=== PATIENT | male | born 1980 | race Caucasian/White ===

== ENCOUNTER 2019-12-24 13:00 | Emergency (ER) | payer OTHER, SELFPAY ==
[2019-12-24 13:01] VITALS: BP 154/100; PULSE 104; RESP 18; TEMP 36.7; O2SAT 100; BMI 18.3
--- NOTE | 2019-12-24 13:40 | HMH.EDUTC ---
[facility] [place] Disposition Clinical Impression: Cellulitis of right foot Bug bite with infection Qualifiers: Encounter type: initial encounter Qualified Code(s): W57.XXXA - Bitten or stung by nonvenomous insect and other nonvenomous arthropods, initial encounter Disposition: Home, Self-Care Condition on Discharge: Good Instructions: Cellulitis Additional Instructions: Keep the affected area clean and dry. Follow up with your regular doctor. Take the antibiotics as directed and apply the topical antibiotics as directed. Apply warm wet compresses to the affected area three or four times per day. GO TO THE ER FOR ANY WORSENING SYMPTOMS Prescriptions: Sulfamethoxazole/Trimethoprim [Bactrim DS tablet] 1 each PO BID 10 Days #20 tab Transmission Status: Received by [id number] Mupirocin [Bactroban 2% Ointment 22gm tube] 1 applicatio TP TID 7 Days #1 tube Transmission Status: Received by [id number] cephALEXin [Keflex 500mg Cap] 500 mg PO Q6H 10 Days #40 cap Transmission Status: Received by [id number] Referrals: Provider,Referral, [Primary Care Provider] - Forms: Work/School Release Time of Disposition: 13:46 Medical Decision Making - Medical Records Medical records reviewed: No: I reviewed the patient's medical records. - Merrill Inquiry Pt receiving controlled substance: No Vital Signs: 12/24/19 13:01 12/24/19 14:02 Temperature 98.1 F 98.1 F Temperature Source Oral Oral Pulse Rate 90 Pulse Rate [Radial] 104 H Respiratory Rate 18 18 Blood Pressure 154/90 H Blood Pressure [Right Arm] 154/100 H Blood Pressure Mean [Right Arm] 118 Blood Pressure Source Automatic Cuff Blood Pressure Source [Right Arm] Automatic Cuff Blood Pressure Position Sitting Blood Pressure Position [Right Arm] Sitting 02 Sat by Pulse Oximetry 100 Oxygen Delivery Method Room Air Room Air Orders (Tests/Meds): ED MEDICATIONS Discontinued Medications Generic Name Dose Route Start Last Admin Trade Name Freq PRN Reason Stop Dose Admin Ceftriaxone Sodium 1 gm 12/24/19 13:40 12/24/19 13:47 Rocephin 1gm Vial IM 12/24/19 13:41 1 gm ONCE ONE Administration Protocol Lidocaine HCl 0 ml 12/24/19 13:40 12/24/19 13:47 Lidocaine 1% 10ml Mdv IM 12/24/19 13:41 2.1 ml ONCE ONE Administration ORDERS Category Date Time Status Wound Culture and Gram Stain Stat Micro 12/24/19 13:37 Results [facility] [place] HPI - General Stated complaint: right leg blisters Time Seen by Provider: 12/24/19 13:10 Mode of Arrival: Ambulatory Source of Information: Patient Limitations: No Limitations Description of Symptoms (Recalled from Triage Doc. by RN): blisters to ankle HEENT Symptoms (Recalled from RN notes): No Resp Symptoms (Recalled from RN notes): No Skin Symptoms (Recalled from RN notes): Yes MS Symptoms (Recalled from RN notes): No Functional Status (Recalled from RN notes): wnl - History of Present Illness Provider Complaint: He c/o right ankle and foot pain and swelling from multiple bug bites and infected areas. He is not diabetic. He denies any fever or chills. But, he states that he has felt bad since this morning. - Related Data Previous Rx's Medication Instructions Recorded Mupirocin [Bactroban 2% Ointment 1 applicatio TP TID 7 Days #1 tube 12/24/19 22gm tube] Sulfamethoxazole/Trimethoprim 1 each PO BID 10 Days #20 tab 12/24/19 [Bactrim DS tablet] cephALEXin [Keflex 500mg Cap] 500 mg PO Q6H 10 Days #40 cap 12/24/19 Allergies Allergy/AdvReac Type Severity Reaction Status Date / Time No Known Allergies Allergy Verified 12/24/19 13:29 - Worker's Comp Is this a Worker's Comp case?: No [facility] History - Hepatitis A Screen Drug use history?: No High risk sexual behaviors?: No History of sexually transmitted infection?: No Currently employed?: No Childcare worker?: No Do you have indoor plumbing?: Yes Do you have electricity?:
[2019-12-24 14:02] VITALS: BP 154/90; PULSE 90; RESP 18; TEMP 36.7; O2SAT 100
== END 2019-12-24 14:04 | disposition home or self-care (01) ==
PROVIDERS: Emergency Provider Nurse Practitioner Family
DX: S90.861A Insect bite (nonvenomous), right foot, initial encounter (principal); L03.115 Cellulitis of right lower limb; F17.210 Nicotine dependence, cigarettes, uncomplicated
CPT/HCPCS: 87070; 87077; 87186; 87205; 96372; 99202

== ENCOUNTER 2020-06-12 15:54 | Emergency (ER) | payer OTHER, SELFPAY ==
[2020-06-12 16:04] VITALS: BP 180/91; PULSE 117; RESP 18; TEMP 36.7; O2SAT 99; BMI 19.1
--- NOTE | 2020-06-12 16:07 | HMH.EDUTC ---
[facility] [place] Clinical Impression: Close exposure to COVID-19 virus Disposition: Home, Self-Care Condition on Discharge: Good Instructions: COVID-19 Viral Test, COVID-19: Testing and Tracing, Preventing the Spread of Coronavirus Discharge Instructions Additional Instructions: *Monitor Temp, Over the counter Motrin or Tylenol as directed/as needed Tylenol every 4 hours and Motrin every 6 hours (as long as your family doctor has told you that you can take it) for fever or pain. and straight to ER if unable to lower temp less than 101.0 after medication given *Warm salt water gargles may help to soothe the throat *Throat Lozenges *Warm fluids like tea with honey may help to soothe the throat *Sleep elevated *Humidifier/Vaporizer Follow up IMMEDIATELY for new or worsening symptoms or no Noticeable improvement over the next 48-72 hours. 911 for difficulty breathing or swallowing Make sure to monitor blood pressure and if it remains elevated follow up with your family Doctor for further evaluation and treatment You were tested for today for COVID19 your test result should be back in the next 24-48 hours, you may call to the [facility] to see if your test results are back in the next 48 hours [phone] [facility] hours are 9am-9pm You was given a handout with instructions for Self Quarantine and Self isolation for while you wait on test results and what to do if they are positive If you are positive the Health Dept will be contacting you also Referrals: PCP,No [Primary Care Provider] - As needed Forms: Work/School Release Time of Disposition: 16:09 Medical Decision Making - Merrill Inquiry Pt receiving controlled substance: No Merrill was queried for this patient: No Vital Signs: 06/12/20 16:04 Temperature 98.0 F Temperature Source Oral Pulse Rate [Radial] 117 H Respiratory Rate 18 Blood Pressure [Right Arm] 180/91 H Blood Pressure Mean [Right Arm] 120 Blood Pressure Source [Right Arm] Automatic Cuff Blood Pressure Position [Right Arm] Sitting 02 Sat by Pulse Oximetry 99 Oxygen Delivery Method Room Air Orders (Tests/Meds): ORDERS Category Date Time Status Covid-19 Nasal PCR ([facility]) Routine Lab 06/12/20 16:03 Ordered Medical Decision Narrative: Patient states that HR and BP elevate due to anxiety about the swab [facility] [place] [facility] [place] - General Stated complaint: covid exposure Time Seen by Provider: 06/12/20 16:07 Mode of Arrival: Ambulatory Source of Information: Patient Limitations: No Limitations Description of Symptoms (Recalled from Triage Doc. by RN): COVID TEST, NO SYMPTOMS HEENT Symptoms (Recalled from RN notes): No Resp Symptoms (Recalled from RN notes): No Skin Symptoms (Recalled from RN notes): No MS Symptoms (Recalled from RN notes): No Functional Status (Recalled from RN notes): WNL - History of Present Illness Provider Complaint: Patient states that he was recently around someone that tested positive for COVID States that he isnt having any symptoms but due to close exposure with someone living in the same house he wanted to get tested - Related Data Previous Rx's Medication Instructions Recorded Mupirocin [Bactroban 2% Ointment 1 applicatio TP TID 7 Days #1 tube 12/24/19 22gm tube] Sulfamethoxazole/Trimethoprim 1 each PO BID 10 Days #20 tab 12/24/19 [Bactrim DS tablet] cephALEXin [Keflex 500mg Cap] 500 mg PO Q6H 10 Days #40 cap 12/24/19 Allergies Allergy/AdvReac Type Severity Reaction Status Date / Time No Known Allergies Allergy Verified 12/24/19 13:29 - Worker's Comp Is this a Worker's Comp case?: No [facility] History - Hepatitis A Screen Drug use history?: No High risk sexual behaviors?: No History of sexually transmitted infection?: No Currently employed?: No Childcare worker?: No Do you have indoor plumbing?: Yes Do you have electricity?: Yes Attestation statement:: This patient has been screened for Hepatitis A risk factors. I have reviewed the patient's past me
[2020-06-12 16:19] VITALS: BP 180/91; PULSE 117; RESP 18; TEMP 36.7; O2SAT 99
== END 2020-06-12 16:24 | disposition home or self-care (01) ==
PROVIDERS: Emergency Provider Nurse Practitioner
DX: Z20.828 Contact with and (suspected) exposure to other viral communicable diseases (principal); F17.210 Nicotine dependence, cigarettes, uncomplicated
CPT/HCPCS: 99201; U0003

== ENCOUNTER 2021-02-24 18:59 | Emergency (ER) | payer OTHER, SELFPAY ==
[2021-02-24 20:15] VITALS: BP 151/98; PULSE 74; RESP 18; TEMP 37.4; O2SAT 98; BMI 18.7
[2021-02-24 20:53] VITALS: BP 151/98; PULSE 74; RESP 18; TEMP 37.4; O2SAT 98
--- NOTE | 2021-02-24 21:03 | HMH.EDUTC ---
[facility] [place] Disposition Clinical Impression: Encounter for laboratory testing for COVID-19 virus Disposition: Home, Self-Care Condition on Discharge: Good Instructions: DI for COVID-19 (Suspected or Confirmed ), Preventing the Spread of Coronavirus Discharge Instructions Additional Instructions: *Monitor Temp, Over the counter Motrin or Tylenol as directed/as needed Tylenol every 4 hours and Motrin every 6 hours (as long as your family doctor has told you that you can take it) for fever or pain. and straight to ER if unable to lower temp less than 101.0 after medication given Follow up IMMEDIATELY for new or worsening symptoms or no Noticeable improvement over the next 48-72 hours. 911 for difficulty breathing or swallowing You were tested for today for COVID19 your test result should be back in the next 24-48 hours, you was given handout on [facility] portal where you can review your results if you do not have internet access you may call the [facility] You was given a handout with instructions for Self Quarantine and Self isolation for while you wait on test results and what to do if they are positive If you are positive the Health Dept will be contacting you also Make sure to take your Vitamins Vit. C Vit D and Zinc if you can take them Referrals: Eduar Licea MD [Primary Care Provider] - As needed Forms: Work/School Release Medical Decision Making - Merrill Inquiry Pt receiving controlled substance: No Merrill was queried for this patient: No Vital Signs: 02/24/21 20:15 02/24/21 20:53 Temperature 99.3 F 99.3 F Temperature Source Oral Pulse Rate 74 Pulse Rate [Right Brachial] 74 Respiratory Rate 18 18 Blood Pressure 151/98 H Blood Pressure [Right Arm] 151/98 H Blood Pressure Mean [Right Arm] 115 Blood Pressure Source [Right Arm] Automatic Cuff Blood Pressure Position [Right Arm] Sitting 02 Sat by Pulse Oximetry 98 Oxygen Delivery Method Room Air Orders (Tests/Meds): ORDERS Category Date Time Status Covid-19 Nasal PCR ([facility]) Routine Lab 02/24/21 20:57 Ordered [facility] [place] HPI - General Stated complaint: covid test Time Seen by Provider: 02/24/21 20:30 Mode of Arrival: Ambulatory Source of Information: Patient Limitations: No Limitations Description of Symptoms (Recalled from Triage Doc. by RN): COVID TEST HEENT Symptoms (Recalled from RN notes): No Resp Symptoms (Recalled from RN notes): No Skin Symptoms (Recalled from RN notes): No MS Symptoms (Recalled from RN notes): No Functional Status (Recalled from RN notes): WNL - History of Present Illness Provider Complaint: Patient states that he is suppose to go to a concert tomorrow night and had to have a negative COVID test Denies any symptoms - Related Data Previous Rx's Medication Instructions Recorded Mupirocin [Bactroban 2% Ointment 1 applicatio TP TID 7 Days #1 tube 12/24/19 22gm tube] Sulfamethoxazole/Trimethoprim 1 each PO BID 10 Days #20 tab 12/24/19 [Bactrim DS tablet] cephALEXin [Keflex 500mg Cap] 500 mg PO Q6H 10 Days #40 cap 12/24/19 Allergies Allergy/AdvReac Type Severity Reaction Status Date / Time No Known Allergies Allergy Verified 12/24/19 13:29 - Worker's Comp Is this a Worker's Comp case?: No [facility] History - Hepatitis A Screen Drug use history?: No High risk sexual behaviors?: No History of sexually transmitted infection?: No Currently employed?: No Childcare worker?: No Do you have indoor plumbing?: Yes Do you have electricity?: Yes Attestation statement:: This patient has been screened for Hepatitis A risk factors. I have reviewed the patient's past medical history: Yes - Social History Smoking Status: Current every day smoker Tobacco Type: cigarettes # Packs/Day (cigarettes): 1 Alcohol Intake: never Occupational Status: other Housing: house ROS Obtained: Yes All systems reviewed & no additional complaints, Yes Systems reviewed as appropriate & no additional complaints - Cons
== END 2021-02-24 20:58 | disposition home or self-care (01) ==
PROVIDERS: Emergency Provider Nurse Practitioner; PCP Family Medicine
DX: Z20.822 Contact with and (suspected) exposure to COVID-19 (principal)
CPT/HCPCS: 99202; G0463; U0003

== ENCOUNTER → 2021-05-16 17:13 | Outpatient (CLI) | payer OTHER, SELFPAY | PROVIDERS: Visit Provider Nurse Practitioner | DX: Z20.822 Contact with and (suspected) exposure to COVID-19 (principal) | CPT/HCPCS: C9803; U0003; U0005 ==

== ENCOUNTER 2022-11-21 11:20 | Emergency (ER) | payer OTHER, SELFPAY ==
[2022-11-21 11:30] VITALS: BP 149/110; PULSE 93; RESP 20; TEMP 36.8; O2SAT 97; BMI 18.7
--- NOTE | 2022-11-21 11:38 | HMH.EDGENADL ---
Discharge Plan Disposition Patient Disposition: Home, Self-Care Prescriptions Prescriptions: New sulfamethoxazole-trimethoprim [Bactrim DS] 800-160 mg tablet 1 tab PO BID 10 Days Qty: 20 0RF cephalexin 500 mg capsule 500 mg PO QID 10 Days Qty: 40 0RF No Action sulfamethoxazole-trimethoprim 1 EACH tablet 1 each PO BID 10 Days Qty: 20 0RF cephalexin 500 MG capsule 500 mg PO Q6H 10 Days Qty: 40 0RF mupirocin 22 GM ointment 1 applicatio TP TID 7 Days Qty: 1 0RF Referrals Follow up/Referrals: Nicki Martino MD [Primary Care Provider] - See instructions Activity Restrictions/Add. Instructions Additional Instructions/Restrictions: If your wounds clean you may put triple antibiotic ointment or Neosporin on your wounds along with a Band-Aid. You should see an improvement in 48 to 72 hours but please complete your course of antibiotics. Return with any worsening symptoms or concerns. Clinical Impressions Clinical Impression: Skin pustule, Cellulitis of lower leg Discharge ED Provider: Dang Waddell [facility] Adult HPI General Stated complaint: Blisters swelling up on feet and legs Time Seen by Provider: 11/21/22 11:38 History of Present Illness HPI narrative: Patient is a 42-year-old male with a history of staph infections presenting today with a few pustules on his right medial knee and left dorsal aspect of his foot. There has been some surrounding erythema and pain and he states that he had this in the past and it got much more severe than this and wanted to get it checked out earlier today. He has no systemic symptoms including fevers or chills. Related Data Previous Rx's Medication Instructions Recorded cephalexin 500 mg capsule 500 mg PO Q6H 10 days #40 caps 12/24/19 mupirocin 2 % topical ointment 1 applicatio TP TID 7 days #1 tube 12/24/19 sulfamethoxazole 800 1 each PO BID 10 days #20 tabs 12/24/19 mg-trimethoprim 160 mg tablet cephalexin 500 mg capsule 500 mg PO QID 10 days #40 caps 11/21/22 sulfamethoxazole 800 1 tab PO BID 10 days #20 tabs 11/21/22 mg-trimethoprim 160 mg tablet (Bactrim DS) Allergies Allergy/AdvReac Type Severity Reaction Status Date / Time No Known Allergies Allergy Verified 12/24/19 13:29 [facility] Disclaimer: The information contained in this section may have been updated after the patient was seen, as this information can be updated by other users. Social History Smoking Status: Current every day smoker tobacco type: cigarettes packs per day: 1 second hand exposure: Yes alcohol intake: never current occupational status: other Travel in the last 8 weeks: None housing: house ROS Obtained: Yes All systems reviewed & no additional complaints except as documented Physical Exam General General appearance: alert Respiratory Respiratory exam: Present normal lung sounds bilaterally; Absent respiratory distress Cardiovascular Cardiovascular exam: Present regular rate; Absent tachycardia Neurological Exam Neurological exam: Present alert; Absent oriented X3 Skin Skin exam: Present other (There are 2 small pustules 1 on the medial aspect of his right knee with a 5 x 5 surrounding area of erythema and tenderness the second is on the dorsal aspect of his left foot also a small pustule with surrounding erythema of the same size) Medical Decision Making Merrill Inquiry Pt receiving controlled substance: No Medical Decision Narrative: 42-year-old with superficial and small pustules bilateral lower extremities with some surrounding cellulitis most likely staph. Bactrim and Keflex have been prescribed no indication for incision and drainage at the moment. Superficial wound care was also discussed and patient will follow-up with primary care doctor return to the emergency department any worsening symptoms. Critical Care Time Critical Care Time Critical Care Time: No Attestation: On 11/21/22, the high probability of a clinically signi
[2022-11-21 12:06] VITALS: BP 149/110; PULSE 93; RESP 20; TEMP 36.8; O2SAT 98
== END 2022-11-21 12:06 | disposition home or self-care (01) ==
PROVIDERS: Emergency Provider Student in an Organized Health Care Education/Training Program; PCP Family Medicine
DX: L03.115 Cellulitis of right lower limb (principal); L03.116 Cellulitis of left lower limb; F17.210 Nicotine dependence, cigarettes, uncomplicated
CPT/HCPCS: 99283; 99284